=== PATIENT | male | born 1965 | race Native Hawaiian/Other Pacific Islander ===

== ENCOUNTER 2022-05-23 11:05 | Inpatient (IN) | payer OTHER | END 2022-06-11 12:23 | disposition still patient (30) | LOC: PAVC 11:05 | PROVIDERS: ADMIT Family Medicine; ATTEND Family Medicine | CPT/HCPCS: G0283-GO ==

== ENCOUNTER 2022-05-24 08:23 | Outpatient (CLI) | payer OTHER ==
[2022-05-24 09:05] LABS: PLATELET COUNT 251 K/uL (142-355)
[2022-05-24 10:32] LABS: POTASSIUM 4.7 mmol/L (3.6-5.2)
== END 2022-05-24 19:25 | disposition home or self-care (01) ==
LOC: LAB 08:23
PROVIDERS: ATTEND Family Medicine
DX: E11.9 Type 2 diabetes mellitus without complications (principal); I10 Essential (primary) hypertension; I63.9 Cerebral infarction, unspecified
CPT/HCPCS: 80053; 80061; 83036; 85027; 87081

== ENCOUNTER 2022-06-11 12:38 | Inpatient (IN) | payer OTHER | END 2022-07-11 16:45 | disposition still patient (30) | LOC: PAVC 12:38 | PROVIDERS: ADMIT Family Medicine; ATTEND Family Medicine | CPT/HCPCS: G0283-GO ==

== ENCOUNTER 2022-07-11 16:49 | Inpatient (IN) | payer OTHER | END 2022-08-11 12:39 | disposition still patient (30) | LOC: PAVC 16:49 | PROVIDERS: ADMIT Family Medicine; ATTEND Family Medicine ==

== ENCOUNTER 2022-08-15 11:13 | Outpatient (CLI) | payer OTHER | END 2022-08-15 19:24 | disposition home or self-care (01) | LOC: LAB 11:13 | PROVIDERS: ATTEND Family Medicine | DX: E11.9 Type 2 diabetes mellitus without complications (principal) | CPT/HCPCS: 36415; 83036 ==